=== PATIENT | female | born 1995 | race Caucasian/White ===

== ENCOUNTER 2021-12-03 15:23 | Outpatient (CLI) | payer BC ==
[2021-12-03 16:34] LABS: BHCG - Serum Negative (NEGATIVE); Pregs Control Background? CLEAR/WHITE (CLR/WHITE); Pregs Control Bar Appear? YES (CONTROL BAR)
== END 2021-12-03 15:24 | disposition home or self-care (01) ==
LOC: RAD 15:23
PROVIDERS: ATTEND Student in an Organized Health Care Education/Training Program
DX: Z32.00 Encounter for pregnancy test, result unknown (principal); N97.9 Female infertility, unspecified
CPT/HCPCS: 36415; 58340; 74740; 84703